=== PATIENT | female | born 1975 | race Caucasian/White ===

== ENCOUNTER → 2017-11-20 | Outpatient (CLI) | payer OTHER ==
[2017-11-20 10:45] LABS: ALBUMIN 4.1 g/dL (3.5-5.0); BUN/CREATININE RATIO 16.6 (6.0-26.0); POTASSIUM 3.9 mmol/L (3.6-5.0); TOTAL BILIRUBIN 0.9 mg/dL (0.2-1.3); TOTAL PROTEIN 7.3 g/dL (6.3-8.2)
[2017-11-21 10:05] LABS: BASO # 0.1 (0.02-0.10); EOS # 0.1 (0.04-0.40); EOS % 0.7 % (1.0-5.0); HEMATOCRIT 42.1 % (37.0-47.0); HEMOGLOBIN 14.1 g/dL (12.5-16.0); LYMPH# 2.2 (1.50-4.00); MEAN CELL VOLUME 86 fl (78-100); MEAN CORPUSCULAR HEMOGLOBIN 29 pg (27-31); MEAN CORPUSCULAR HGB CONC 34 g/dL (33-37); MEAN PLATELET VOLUME 10.6 fl (7.4-10.4); MONO # 0.6 (0.20-0.80); NEU # 5.7 (1.40-6.50); PLATELET COUNT 236 K/mm3 (130-400); RED BLOOD COUNT 4.88 M/mm3 (4.10-5.30); RED CELL DISTRIBUTION WIDTH 12.7 % (11.5-14.5); WHITE BLOOD COUNT 8.6 K/mm3 (4.8-10.8)
== END ==
LOC: LAB 10:18
PROVIDERS: Nurse Practitioner Family
DX: Z00.00 Encounter for general adult medical examination without abnormal findings (principal); R94.5 Abnormal results of liver function studies; R79.89 Other specified abnormal findings of blood chemistry; Z88.1 Allergy status to other antibiotic agents; Z88.0 Allergy status to penicillin

== ENCOUNTER → 2017-12-09 | Outpatient (CLI) | payer OTHER | LOC: RAD 15:45 → MAMMO 16:00 | DX: Z12.31 Encounter for screening mammogram for malignant neoplasm of breast (principal); E55.9 Vitamin D deficiency, unspecified; R79.89 Other specified abnormal findings of blood chemistry; E78.9 Disorder of lipoprotein metabolism, unspecified ==

== ENCOUNTER → 2018-04-09 | Outpatient (CLI) | payer OTHER | LOC: LAB 15:36 | DX: N76.0 Acute vaginitis (principal) ==

== ENCOUNTER → 2018-12-03 | Outpatient (CLI) | payer OTHER | LOC: RAD 14:17 | DX: R10.2 Pelvic and perineal pain (principal); Z90.710 Acquired absence of both cervix and uterus; Z98.890 Other specified postprocedural states ==

== ENCOUNTER → 2018-12-10 | Outpatient (CLI) | payer OTHER | LOC: MAMMO 09:15 | DX: Z12.31 Encounter for screening mammogram for malignant neoplasm of breast (principal) ==

== ENCOUNTER → 2018-12-29 | Outpatient (CLI) | payer OTHER ==
[2018-12-29 08:42] LABS: EOS # 0.1 (0.04-0.40); EOS % 0.9 % (1.0-5.0); HEMATOCRIT 42.3 % (37.0-47.0); LYMPH# 2.3 (1.50-4.00); MEAN CELL VOLUME 87 fl (78-100); MEAN CORPUSCULAR HEMOGLOBIN 29 pg (27-31); MEAN CORPUSCULAR HGB CONC 33 g/dL (33-37); MEAN PLATELET VOLUME 11.1 fl (7.4-10.4); MONO # 0.7 (0.20-0.80); NEU # 4.5 (1.40-6.50); PLATELET COUNT 224 K/mm3 (130-400); RED BLOOD COUNT 4.88 M/mm3 (4.10-5.30); RED CELL DISTRIBUTION WIDTH 12.7 % (11.5-14.5); WHITE BLOOD COUNT 7.5 K/mm3 (4.8-10.8)
[2018-12-29 08:47] LABS: ALBUMIN 4.1 g/dL (3.5-5.0); CALCIUM 8.7 mg/dL (8.4-10.2); POTASSIUM 3.9 mmol/L (3.6-5.0); TOTAL BILIRUBIN 0.4 mg/dL (0.2-1.3)
== END ==
LOC: RAD 07:59
PROVIDERS: Physician Assistant
DX: R19.09 Other intra-abdominal and pelvic swelling, mass and lump (principal); R10.9 Unspecified abdominal pain; Z90.710 Acquired absence of both cervix and uterus
CPT/HCPCS: Q9967

== ENCOUNTER → 2019-01-19 | Outpatient (CLI) | payer OTHER ==
[2019-01-19 12:23] LABS: CALCIUM 8.9 mg/dL (8.4-10.2); POTASSIUM 3.7 mmol/L (3.6-5.0)
== END ==
LOC: LAB 12:01
PROVIDERS: Family Medicine
DX: E87.6 Hypokalemia (principal)

== ENCOUNTER → 2020-07-11 | Outpatient (CLI) | payer OTHER | LOC: LAB 14:24 | DX: N30.10 Interstitial cystitis (chronic) without hematuria (principal) ==

== ENCOUNTER → 2020-08-15 | Outpatient (CLI) | payer OTHER ==
[2020-08-15 10:46] LABS: ALBUMIN 4.4 g/dL (3.5-5.0)
[2020-08-15 10:47] LABS: POTASSIUM 4.3 mmol/L (3.5-5.1)
[2020-08-15 10:48] LABS: CALCIUM 8.9 mg/dL (8.3-10.5)
[2020-08-15 10:49] LABS: TOTAL PROTEIN 7.1 g/dL (6.4-8.3)
[2020-08-15 10:51] LABS: TOTAL BILIRUBIN 0.7 mg/dL (0.2-1.2)
== END ==
LOC: LAB 10:28
PROVIDERS: Family Medicine
DX: F41.9 Anxiety disorder, unspecified (principal)

== ENCOUNTER 2020-09-16 17:58 | Emergency (ER) | payer OTHER ==
[~2020-09-16] VITALS: Ht 167.6 cm; Wt 58.7 kg
[2020-09-16] MEDS ORDERED: SERTRALINE50 MG PO (18:06)
[2020-09-16] MEDS ORDERED: XYZAL5 MG PO (18:12)
[2020-09-16] MEDS ORDERED: VITAMIN D21250 MC1 PO (18:12)
[2020-09-16] MEDS ORDERED: LORAZEPAM0.5 M1 PO (19:14)
[2020-09-16 19:38] VITALS: BP 149/86
== END 2020-09-16 20:10 | disposition home or self-care (01) ==
LOC: ED 17:58
DX: F41.9 Anxiety disorder, unspecified (principal); F32.9 Major depressive disorder, single episode, unspecified; Z90.710 Acquired absence of both cervix and uterus; Z88.0 Allergy status to penicillin

== ENCOUNTER → 2020-11-09 | Outpatient (CLI) | payer OTHER ==
[~2020-11-09] MED LIST: LORAZEPAM0.5 M1 PO; SERTRALINE50 MG PO; VITAMIN D21250 MC1 PO; XYZAL5 MG PO
[2020-11-09 09:53] LABS: EOS # 0.1 (0.04-0.40); EOS % 1.6 % (1.0-5.0); HEMATOCRIT 45.1 % (37.0-47.0); HEMOGLOBIN 14.6 g/dL (12.5-16.0); MEAN CELL VOLUME 89 fl (78-100); MEAN CORPUSCULAR HEMOGLOBIN 29 pg (27-31); MEAN CORPUSCULAR HGB CONC 32 g/dL (33-37); MEAN PLATELET VOLUME 10.8 fl (7.4-10.4); MONO # 0.5 (0.20-0.80); NEU # 3.7 (1.40-6.50); PLATELET COUNT 229 K/mm3 (130-400); RED BLOOD COUNT 5.06 M/mm3 (4.10-5.30); RED CELL DISTRIBUTION WIDTH 13.2 % (11.5-14.5); WHITE BLOOD COUNT 6.3 K/mm3 (4.8-10.8)
== END ==
LOC: LAB 09:32
PROVIDERS: Physician Assistant
DX: Z00.00 Encounter for general adult medical examination without abnormal findings (principal)

== ENCOUNTER → 2020-11-15 | Outpatient (CLI) | payer OTHER | LOC: MAMMO 09:15 | DX: Z12.31 Encounter for screening mammogram for malignant neoplasm of breast (principal) ==

== ENCOUNTER → 2022-01-02 | Outpatient (CLI) | payer OTHER ==
[~2022-01-02] MED LIST changes: +LAMOTRIGINE25 M1 PO; +VENLAFAXINE HCL75 M3 PO
[2022-01-02 09:03] LABS: BASO # 0.04 K/mm3 (0.02-0.10); EOS # 0.07 K/mm3 (0.04-0.40); EOS % 1.1 % (1.0-5.0); HEMATOCRIT 43.9 % (37.0-47.0); HEMOGLOBIN 14.5 g/dL (12.5-16.0); LYMPH# 1.93 K/mm3 (1.50-4.00); MEAN CELL VOLUME 89 fl (78-100); MEAN CORPUSCULAR HEMOGLOBIN 30 pg (27-31); MEAN CORPUSCULAR HGB CONC 33 g/dL (33-37); MEAN PLATELET VOLUME 11.1 fl (7.4-10.4); MONO # 0.37 K/mm3 (0.20-0.80); NEU # 3.75 K/mm3 (1.40-6.50); PLATELET COUNT 168 K/mm3 (130-400); RED BLOOD COUNT 4.91 M/mm3 (4.10-5.30); WHITE BLOOD COUNT 6.2 K/mm3 (4.8-10.8)
[2022-01-02 09:07] LABS: POTASSIUM 3.9 mmol/L (3.5-5.1); SODIUM 142 mmol/L (136-145)
[2022-01-02 09:09] LABS: CALCIUM 8.9 mg/dL (8.3-10.5)
[2022-01-02 09:10] LABS: GLUCOSE 89 mg/dL (65-105); TOTAL PROTEIN 7.1 g/dL (6.4-8.3)
[2022-01-02 09:11] LABS: CARBON DIOXIDE 23 mmol/L (22-29)
[2022-01-02 09:12] LABS: TOTAL BILIRUBIN 0.5 mg/dL (0.2-1.2)
[2022-01-02 09:15] LABS: AST-SGOT 52 U/L (5-34)
[2022-01-02 09:17] LABS: ALT/SGPT 75 U/L (0-55)
[2022-01-03 01:03] LABS: FOLLICLE STIMULATING HORMONE 30.8 mIU/mL (()); LUTENIZING HORMONE 77.6 mIU/mL (())
== END ==
LOC: LAB 08:27
PROVIDERS: Physician Assistant
DX: Z00.00 Encounter for general adult medical examination without abnormal findings (principal); Z13.29 Encounter for screening for other suspected endocrine disorder; K90.9 Intestinal malabsorption, unspecified; M25.50 Pain in unspecified joint; R53.83 Other fatigue; N95.1 Menopausal and female climacteric states

== ENCOUNTER 2022-01-07 08:25 | Emergency (ER) | payer OTHER ==
[~2022-01-07 08:25] MED LIST changes: -LAMOTRIGINE25 M1 PO; -VENLAFAXINE HCL75 M3 PO
[2022-01-07] MEDS ORDERED: VENLAFAXINE HCL75 M3 PO (08:53)
[2022-01-07] MEDS ORDERED: LAMOTRIGINE25 M1 PO (08:53)
[2022-01-07 09:24] LABS: POTASSIUM 3.3 mmol/L (3.5-5.1)
[2022-01-07 09:26] LABS: TOTAL PROTEIN 6.8 g/dL (6.4-8.3)
[2022-01-07 09:28] LABS: TOTAL BILIRUBIN 0.5 mg/dL (0.2-1.2)
[2022-01-07 10:10] LABS: BASO # 0.07 K/mm3 (0.02-0.10); EOS # 0.11 K/mm3 (0.04-0.40); EOS % 1.3 % (1.0-5.0); HEMATOCRIT 41.5 % (37.0-47.0); HEMOGLOBIN 13.9 g/dL (12.5-16.0); LYMPH# 2.83 K/mm3 (1.50-4.00); MEAN CELL VOLUME 89 fl (78-100); MEAN CORPUSCULAR HEMOGLOBIN 30 pg (27-31); MEAN CORPUSCULAR HGB CONC 34 g/dL (33-37); MEAN PLATELET VOLUME 11.6 fl (7.4-10.4); MONO # 0.79 K/mm3 (0.20-0.80); PLATELET COUNT 273 K/mm3 (130-400); RED BLOOD COUNT 4.67 M/mm3 (4.10-5.30); RED CELL DISTRIBUTION WIDTH 12.9 % (11.5-14.5); WHITE BLOOD COUNT 8.5 K/mm3 (4.8-10.8)
[2022-01-07 10:11] LABS: URINE APPEARANCE CLOUDY; URINE COLOR YELLOW; URINE PROTEIN(semi-quant) TRACE (NEGATIVE)
[2022-01-07 10:12] LABS: URINE BILIRUBIN NEGATIVE (NEGATIVE); URINE BLOOD 250 ery/uL (NEGATIVE); URINE GLUCOSE NEGATIVE (NEGATIVE); URINE KETONE 1+ (NEGATIVE); URINE LEUKOCYTE ESTERASE TRACE (NEGATIVE); URINE NITRATE NEGATIVE (NEGATIVE); URINE UROBILINOGEN NORMAL (NORMAL); URINE WBC 0-1 /hpf (0-3)
[2022-01-07 10:13] LABS: URINE MUCUS PRESENT (NOT PRESENT)
[2022-01-07 14:08] VITALS: BP 153/88
== END 2022-01-07 14:00 | disposition short-term general hospital (02) ==
LOC: ED 08:25
PROVIDERS: Nurse Practitioner
DX: N20.2 Calculus of kidney with calculus of ureter (principal); E87.6 Hypokalemia; Z98.890 Other specified postprocedural states; Z20.822 Contact with and (suspected) exposure to COVID-19
CPT/HCPCS: J1885; J2405; J3010; J7030; Q9967

== ENCOUNTER → 2022-01-11 | Outpatient (CLI) | payer OTHER ==
[~2022-01-11] MED LIST changes: +LAMOTRIGINE25 M1 PO; +VENLAFAXINE HCL75 M3 PO
[2022-01-11 11:37] LABS: URINE APPEARANCE HAZY; URINE BILIRUBIN NEGATIVE (NEGATIVE); URINE BLOOD 250 ery/uL (NEGATIVE); URINE COLOR YELLOW; URINE GLUCOSE NEGATIVE (NEGATIVE); URINE KETONE NEGATIVE (NEGATIVE); URINE LEUKOCYTE ESTERASE 1+ (NEGATIVE); URINE MUCUS PRESENT (NOT PRESENT); URINE NITRATE NEGATIVE (NEGATIVE); URINE PROTEIN(semi-quant) TRACE (NEGATIVE); URINE UROBILINOGEN NORMAL (NORMAL)
[2022-01-11 11:41] LABS: BASO # 0.05 K/mm3 (0.02-0.10); EOS % 1.5 % (1.0-5.0); HEMATOCRIT 44.6 % (37.0-47.0); HEMOGLOBIN 14.5 g/dL (12.5-16.0); LYMPH# 1.52 K/mm3 (1.50-4.00); MEAN CELL VOLUME 90 fl (78-100); MEAN CORPUSCULAR HEMOGLOBIN 29 pg (27-31); MEAN CORPUSCULAR HGB CONC 33 g/dL (33-37); MEAN PLATELET VOLUME 11.1 fl (7.4-10.4); MONO # 0.62 K/mm3 (0.20-0.80); NEU # 4.17 K/mm3 (1.40-6.50); PLATELET COUNT 268 K/mm3 (130-400); RED BLOOD COUNT 4.94 M/mm3 (4.10-5.30); RED CELL DISTRIBUTION WIDTH 13.2 % (11.5-14.5); WHITE BLOOD COUNT 6.5 K/mm3 (4.8-10.8)
[2022-01-11 11:56] LABS: ALBUMIN 4.4 g/dL (3.5-5.0)
[2022-01-11 11:57] LABS: POTASSIUM 3.7 mmol/L (3.5-5.1)
[2022-01-11 11:58] LABS: CALCIUM 9.4 mg/dL (8.3-10.5)
[2022-01-11 11:59] LABS: TOTAL PROTEIN 7.5 g/dL (6.4-8.3)
[2022-01-11 12:01] LABS: TOTAL BILIRUBIN 0.5 mg/dL (0.2-1.2)
== END ==
LOC: LAB 11:06
PROVIDERS: Nurse Practitioner Family
DX: R30.9 Painful micturition, unspecified (principal); R10.32 Left lower quadrant pain